=== PATIENT | male | born 1930 | race Caucasian/White ===

== ENCOUNTER 2017-06-11 14:17 | Inpatient (IN) | payer OTHER, MEDICARE ==
[~2017-06-11] VITALS: Ht 182.9 cm; Wt 96.8 kg
[2017-06-11 15:21] LABS: INTER. NORMALIZED RATIO 1.3; PROTHROMBIN TIME 14.9 SEC (10.2-12.9)
[2017-06-11 15:24] LABS: PTT 29.1 SEC (25-37)
[2017-06-11] MEDS ORDERED: SERTRALINE HCL50 MG PO (15:39)
[2017-06-11] MEDS ORDERED: METFORMIN HCL500 M1 PO (15:39)
[2017-06-11] MEDS ORDERED: PREDNISONE20 MG PO (15:40)
[2017-06-11] MEDS ORDERED: LEVOFLOXACIN750 MG PO (15:41)
[2017-06-11 16:32] LABS: POINT-OF-CARE METER ID UU14100415
[2017-06-11 19:13] LABS: EOSINOPHIL (%) 0.1 % (0-5); HEMATOCRIT 37.1 % (38.0-50.0); IMMATURE GRANULOCYTE (%) 0.2 % (0.0-0.7); LYMPHOCYTE COUNT 0.8 K/uL (1.0-2.8); MCH 27.3 PG (29.0-34.0); MCHC 31.5 G/DL (30.0-36.0); MCV 86.7 FL (86-99); MEAN PLAT.VOLUME 11.2 uM^3 (9.0-12.4); MONOCYTE (%) 5.6 % (3-12); MONOCYTE COUNT 0.5 K/uL (0-0.8); PLATELET COUNT 162 K/uL (156-360); RBC DIS.WIDTH-CV 14.6 % (11.8-14.6); RBC DIS.WIDTH-SD 46.8 % (39-53); RED BLOOD COUNT 4.28 M/uL (4.00-5.50); WHITE BLOOD COUNT 8.4 K/uL (4.1-10.2)
[2017-06-11 19:26] LABS: CHLORIDE 105 mEq/L (99-109); POTASSIUM 4.8 mEq/L (3.7-5.4); SODIUM 141 mEq/L (136-147)
[2017-06-11 19:29] LABS: GLUCOSE 133 mg/dL (70-99)
[2017-06-11 19:30] LABS: ANION GAP 11 MEQ/L (2-14)
[2017-06-11 19:31] LABS: TOTAL BILIRUBIN 0.5 mg/dL (0.0-1.0)
[2017-06-11 19:32] LABS: ALKALINE PHOSPHATASE 51 IU/L (3-129); GFR ESTIMATE (CALCULATED) 36 mL/min/
[2017-06-11 19:37] LABS: UREA NITROGEN (BUN) 36 mg/dL (9-23)
[2017-06-11 22:00] VITALS: BP 146/75
[2017-06-12 00:35] VITALS: BP 157/88
[2017-06-12 05:48] LABS: ANION GAP 10 MEQ/L (2-14); CHLORIDE 106 MEQ/L (99-109); GFR ESTIMATE (CALCULATED) 41 mL/min/; SAMPLE HEMOLYSIS CHECK 0; SAMPLE ICTERIC CHECK 0; SAMPLE LIPEMIA CHECK 0; SODIUM 141 MEQ/L (136-147); UREA NITROGEN (BUN) 30 mg/dL (9-23)
[2017-06-12 05:58] LABS: GLUCOSE 92 mg/dL (70-99)
[2017-06-12 06:01] LABS: POINT-OF-CARE METER ID UU14117124
[2017-06-12 08:48] VITALS: BP 150/76
[2017-06-12 11:58] VITALS: BP 151/56
[2017-06-12 12:01] LABS: POINT-OF-CARE METER ID UU14188577
[2017-06-12 15:41] LABS: POINT-OF-CARE METER ID UU14188577
[2017-06-12 16:05] VITALS: BP 151/75
[2017-06-12 19:40] VITALS: BP 190/85
[2017-06-12 21:14] LABS: POINT-OF-CARE METER ID UU14188577
[2017-06-13 00:37] VITALS: BP 138/69
[2017-06-13 05:38] VITALS: BP 148/73
[2017-06-13 06:31] LABS: POINT-OF-CARE METER ID UU14208753
[2017-06-13 08:01] VITALS: BP 143/75
[2017-06-13 16:14] VITALS: BP 146/75
[2017-06-13 17:26] LABS: POINT-OF-CARE METER ID UU14208753
[2017-06-13 19:55] VITALS: BP 120/62
[2017-06-13 21:34] LABS: POINT-OF-CARE METER ID UU14208753
[2017-06-14] VITALS (7 sets, daily range): BP systolic 124–141; BP diastolic 59–92
[2017-06-14 06:14] LABS: POINT-OF-CARE METER ID UU14208753
[2017-06-14 06:59] LABS: HEMATOCRIT 35.2 % (38.0-50.0); MCH 28.3 PG (29.0-34.0); MCHC 32.7 G/DL (30.0-36.0); MCV 86.5 FL (86-99); MEAN PLAT.VOLUME 11.9 uM^3 (9.0-12.4); PLATELET COUNT 161 K/uL (156-360); RBC DIS.WIDTH-CV 14.9 % (11.8-14.6); RBC DIS.WIDTH-SD 47.3 % (39-53); RED BLOOD COUNT 4.07 M/uL (4.00-5.50); WHITE BLOOD COUNT 7.5 K/uL (4.1-10.2)
[2017-06-14 07:38] LABS: ALKALINE PHOSPHATASE 47 IU/L (3-129); ANION GAP 8 MEQ/L (2-14); CHLORIDE 101 MEQ/L (99-109); GFR ESTIMATE (CALCULATED) 47 mL/min/; GLUCOSE 110 mg/dL (70-99); POTASSIUM 4.1 MEQ/L (3.7-5.4); SAMPLE HEMOLYSIS CHECK 0; SAMPLE ICTERIC CHECK 0; SAMPLE LIPEMIA CHECK 0; SODIUM 138 MEQ/L (136-147); TOTAL BILIRUBIN 0.8 MG/DL (0.0-1.0); UREA NITROGEN (BUN) 26 mg/dL (9-23)
[2017-06-14 13:49] LABS: POINT-OF-CARE METER ID UU14208753
[2017-06-14 16:34] LABS: POINT-OF-CARE METER ID UU14208753
[2017-06-14 21:35] LABS: POINT-OF-CARE METER ID UU14208753
[2017-06-15 04:36] VITALS: BP 164/89
[2017-06-15 06:35] LABS: POINT-OF-CARE METER ID UU14188577
[2017-06-15 08:20] VITALS: BP 137/75
[2017-06-15 12:04] LABS: POINT-OF-CARE METER ID UU14188577
[2017-06-15 12:26] VITALS: BP 109/51
[2017-06-15 16:23] LABS: POINT-OF-CARE METER ID UU14208753
[2017-06-15 16:27] VITALS: BP 143/74
[2017-06-15 20:05] VITALS: BP 150/65
[2017-06-15 23:37] VITALS: BP 138/89
[2017-06-16 03:49] VITALS: BP 154/77
[2017-06-16 06:22] LABS: POINT-OF-CARE METER ID UU14208753
[2017-06-16 08:14] VITALS: BP 117/59
[2017-06-16 11:21] LABS: POINT-OF-CARE METER ID UU14117124
[2017-06-16 11:32] VITALS: BP 148/71
[2017-06-16 15:56] VITALS: BP 165/72
[2017-06-16 19:12] VITALS: BP 147/79
[2017-06-16 19:18] VITALS: BP 150/74
[2017-06-17 00:31] VITALS: BP 117/56
[2017-06-17 03:57] VITALS: BP 131/76
[2017-06-17 07:53] VITALS: BP 115/66
[2017-06-17 15:32] VITALS: BP 155/74
[2017-06-17 20:01] VITALS: BP 151/82
[2017-06-17 21:12] LABS: POINT-OF-CARE METER ID UU14188577
[2017-06-18] VITALS (7 sets, daily range): BP systolic 119–154; BP diastolic 57–85
[2017-06-18 08:44] LABS: POINT-OF-CARE METER ID UU14117124
[2017-06-18 16:31] LABS: POINT-OF-CARE METER ID UU14188577
[2017-06-18 21:29] LABS: POINT-OF-CARE METER ID UU14117124
[2017-06-19 04:03] VITALS: BP 118/57
[2017-06-19 06:59] LABS: POINT-OF-CARE METER ID UU14188577
[2017-06-19 08:40] VITALS: BP 167/74
[2017-06-19] MEDS ORDERED: PRED FORTE100 DROP/5 RIGHT EYE (12:14)
[2017-06-19] MEDS ORDERED: XALATAN2.5 ML BOTH EYES (12:17)
[2017-06-19] MEDS ORDERED: DORZOLAMIDE HCL10 ML BOTH EYES (12:19)
[2017-06-19] MEDS ORDERED: BRIMONIDINE TART5 ML BOTH EYES (12:19)
[2017-06-19 16:50] VITALS: BP 150/78
[2017-06-19 19:55] VITALS: BP 125/68
[2017-06-19 21:36] LABS: POINT-OF-CARE METER ID UU14208753
[2017-06-19 23:40] VITALS: BP 156/71
[2017-06-20 03:48] VITALS: BP 122/60
[2017-06-20 06:48] LABS: ALKALINE PHOSPHATASE 52 IU/L (3-129); ANION GAP 11 MEQ/L (2-14); CHLORIDE 100 MEQ/L (99-109); GFR ESTIMATE (CALCULATED) 56 mL/min/; GLUCOSE 154 mg/dL (70-99); MAGNESIUM 2.2 mg/dl (1.3-2.7); POTASSIUM 4.8 MEQ/L (3.7-5.4); SAMPLE HEMOLYSIS CHECK 0; SAMPLE ICTERIC CHECK 0; SAMPLE LIPEMIA CHECK 0; SODIUM 139 MEQ/L (136-147)
[2017-06-20 06:49] LABS: TOTAL BILIRUBIN 0.6 MG/DL (0.0-1.0); UREA NITROGEN (BUN) 49 mg/dL (9-23)
[2017-06-20 08:40] VITALS: BP 156/86
[2017-06-20 11:40] VITALS: BP 126/62
[2017-06-20 11:40] LABS: POINT-OF-CARE METER ID UU14208753
[2017-06-20] MEDS ORDERED: HYDROCHLOROTHIA25 MG PO (13:11)
[2017-06-20] MEDS ORDERED: DEXAMETHASONE4 MG PO (13:11)
[2017-06-20] MEDS ORDERED: LOPRESSOR25 MG PO (13:11)
[2017-06-20] MEDS ORDERED: COZAAR100 MG PO (13:11)
== END 2017-06-20 14:08 | disposition home health service (06) | DRG 180 ==
LOC: EME 14:17 → EDOF 15:50 → 3EAST 15:50 → ENRESERV 16:11 → 3EAST 21:18
PROVIDERS: Emergency Medicine; Internal Medicine
PROC: 0BBC3ZX Excision of Right Upper Lung Lobe, Percutaneous Approach, Diagnostic (ICD-10-PCS; principal; 2017-06-15)
DX: C34.12 Malignant neoplasm of upper lobe, left bronchus or lung (principal); C79.31 Secondary malignant neoplasm of brain; S06.2X0A Diffuse traumatic brain injury without loss of consciousness, initial encounter; W01.10XA Fall on same level from slipping, tripping and stumbling with subsequent striking against unspecified object, initial encounter; Y92.019 Unspecified place in single-family (private) house as the place of occurrence of the external cause; G93.6 Cerebral edema; I48.2 Chronic atrial fibrillation; I49.5 Sick sinus syndrome; I47.2 Ventricular tachycardia; E11.22 Type 2 diabetes mellitus with diabetic chronic kidney disease; I12.9 Hypertensive chronic kidney disease with stage 1 through stage 4 chronic kidney disease, or unspecified chronic kidney disease; N18.3 Chronic kidney disease, stage 3 (moderate); E78.2 Mixed hyperlipidemia; N40.0 Benign prostatic hyperplasia without lower urinary tract symptoms; E66.9 Obesity, unspecified; Z68.28 Body mass index [BMI] 28.0-28.9, adult; Z75.1 Person awaiting admission to adequate facility elsewhere; Z86.79 Personal history of other diseases of the circulatory system; Z87.891 Personal history of nicotine dependence; Z91.81 History of falling
CPT/HCPCS: 70450; 70553; 71010; 71250; 77012; 77290; 77307; 77334; 80048; 80053; 82948; 83735; 84443; 85025; 85027; 85610; 85730; 88305; 88341 TC; 88342 TC; 93005; 97530 GO; 97530 GP; 99281; 99285; J1815; J3010; J7040; J8540